=== PATIENT | male | born 1945 | race Caucasian/White ===

== ENCOUNTER → 2016-05-23 | Outpatient (CLI) | payer OTHER, MEDICARE ==
[~2016-05-23] MED LIST: AMLO-110 PO; ASPI81TA28 PO; GABA-113 PO; GABA300C19 PO; GLIM2TAB2 PO; GLIM4TAB2 PO; INSDGI SC; LISI-787 PO; METF-384 PO; NEPA0.6D OPL; OMEGCAP2 PO; PRED1SUS3 OPL; SIMV20TA5 PO
[2016-05-23 13:36] LABS: ALT/SGPT 42 U/L (12-78); AST/SGOT 27 U/L (15-37); BLOOD UREA NITROGEN 23 mg/dl (7-18); BUN/CREATININE RATIO 20.5 (10-20); CALCIUM 8.9 mg/dl (8.5-10.1); CARBON DIOXIDE 27 mmol/L (21-32); CHLORIDE 107 mmol/L (98-107); CHOLESTEROL 107 mg/dl (0-200); GLUCOSE 135 mg/dl (70-99); SODIUM 141 mmol/L (136-145); TRIGLYCERIDES 265 mg/dl (0-150); VERY LOW DENSITY LIPOPROT CALC 53 mg/dl
[2016-05-23 13:40] LABS: ALB/GLOB RATIO 1.1 (0.9-2); ALKALINE PHOSPHATASE 60 U/L (45-117); CHOLESTEROL/HDL RATIO 3.6; HDL CHOLESTEROL 30 mg/dl; LDL CHOLESTEROL CALCULATED 24 mg/dl
[2016-05-23 13:58] LABS: ESTIMATED AVERAGE GLUCOSE 183 mg/dl; HA1C FLAG Normal (Normal)
== END | disposition home or self-care (01) ==
LOC: C.LABMFLN 07:40
PROVIDERS: ATTEND Family Medicine
DX: E78.00 Pure hypercholesterolemia, unspecified (principal); I12.9 Hypertensive chronic kidney disease with stage 1 through stage 4 chronic kidney disease, or unspecified chronic kidney disease; E11.9 Type 2 diabetes mellitus without complications; N18.9 Chronic kidney disease, unspecified; Z12.5 Encounter for screening for malignant neoplasm of prostate

== ENCOUNTER → 2016-10-26 | Outpatient (CLI) | payer OTHER, MEDICARE ==
[2016-10-26 13:58] LABS: ESTIMATED AVERAGE GLUCOSE 166 mg/dl; HA1C FLAG Normal (Normal)
[2016-10-26 14:08] LABS: ALT/SGPT 42 U/L (12-78); BLOOD UREA NITROGEN 25 mg/dl (7-18); BUN/CREATININE RATIO 21.2 (10-20); CALCIUM 9.3 mg/dl (8.5-10.1); CARBON DIOXIDE 27 mmol/L (21-32); CHLORIDE 107 mmol/L (98-107); CHOLESTEROL 95 mg/dl (0-200); GLUCOSE 112 mg/dl (70-99); POTASSIUM 4.4 mmol/L (3.5-5.1); SODIUM 141 mmol/L (136-145); TRIGLYCERIDES 220 mg/dl (0-150); VERY LOW DENSITY LIPOPROT CALC 44 mg/dl
[2016-10-26 14:11] LABS: ALKALINE PHOSPHATASE 64 U/L (45-117); AST/SGOT 23 U/L (15-37); HDL CHOLESTEROL 32 mg/dl; LDL CHOLESTEROL CALCULATED 19 mg/dl
== END | disposition home or self-care (01) ==
LOC: C.LABMFLN 08:55
PROVIDERS: ATTEND Family Medicine
DX: Z00.00 Encounter for general adult medical examination without abnormal findings (principal); E11.9 Type 2 diabetes mellitus without complications

== ENCOUNTER → 2017-03-13 | Outpatient (CLI) | payer OTHER, MEDICARE ==
[~2017-03-13] MED LIST changes: +GABA-1218 PO; -GABA300C19 PO
[2017-03-13 13:04] LABS: ALBUMIN 3.4 gm/dl (3.4-5.0); ALT/SGPT 44 U/L (12-78); BLOOD UREA NITROGEN 23 mg/dl (7-18); CALCIUM 8.7 mg/dl (8.5-10.1); CARBON DIOXIDE 27 mmol/L (21-32); CHOLESTEROL 94 mg/dl (0-200); CREATININE 1.33 mg/dl (0.60-1.40); GLUCOSE 114 mg/dl (70-99); POTASSIUM 4.1 mmol/L (3.5-5.1); SODIUM 138 mmol/L (136-145)
[2017-03-13 13:07] LABS: ALKALINE PHOSPHATASE 67 U/L (45-117); AST/SGOT 24 U/L (15-37); LDL CHOLESTEROL CALCULATED 25 mg/dl; TOTAL PROTEIN 6.6 gm/dl (6.4-8.2)
[2017-03-13 13:12] LABS: HEMOGLOBIN A1C 8.4 % (4.5-5.6)
== END | disposition home or self-care (01) ==
LOC: C.LABMFLN 08:54
PROVIDERS: ATTEND Family Medicine
DX: E78.00 Pure hypercholesterolemia, unspecified (principal); I10 Essential (primary) hypertension; E11.9 Type 2 diabetes mellitus without complications

== ENCOUNTER → 2017-07-15 | Outpatient (CLI) | payer OTHER, MEDICARE ==
[2017-07-15 13:23] LABS: HEMOGLOBIN A1C 7.7 % (4.5-5.6)
[2017-07-15 13:41] LABS: ALBUMIN 3.4 gm/dl (3.4-5.0); ALT/SGPT 38 U/L (12-78); AST/SGOT 22 U/L (15-37); BLOOD UREA NITROGEN 23 mg/dl (7-18); CALCIUM 8.7 mg/dl (8.5-10.1); CARBON DIOXIDE 26 mmol/L (21-32); CHOLESTEROL 93 mg/dl (0-200); GLUCOSE 140 mg/dl (70-99); POTASSIUM 4.4 mmol/L (3.5-5.1); SODIUM 139 mmol/L (136-145)
[2017-07-15 13:46] LABS: ALKALINE PHOSPHATASE 64 U/L (45-117); LDL CHOLESTEROL CALCULATED 26 mg/dl; TOTAL PROTEIN 6.8 gm/dl (6.4-8.2)
== END | disposition home or self-care (01) ==
LOC: C.LABMFLN 09:36
PROVIDERS: ATTEND Family Medicine
DX: E78.00 Pure hypercholesterolemia, unspecified (principal); I10 Essential (primary) hypertension; Z12.5 Encounter for screening for malignant neoplasm of prostate; E11.40 Type 2 diabetes mellitus with diabetic neuropathy, unspecified